=== PATIENT | female | born 1945 | race Caucasian/White ===

== ENCOUNTER 2019-04-06 20:35 | Emergency (ER) | payer MEDICARE, SELFPAY ==
[2019-04-06 20:39] VITALS: BP 105/67; PULSE 56; RESP 16; TEMP 36.6; O2SAT 100
[2019-04-06 20:46] VITALS: RESP 16
--- NOTE | 2019-04-06 20:48 | W.ED.GENAD ---
Discharge Plan Disposition Patient Disposition: HOME Condition: Stable Discharge Details Chief Complaint: Dizzy/Sync Clinical Impression: Closed fracture of distal end of right fibula Primary Care Provider: Darleen Bowens ED Provider: Manjeet Moreno Home Meds and New Rx's Prescriptions: No Action vitamin B complex [B-Complex] 1 EACH tablet 1 ea PO DAILY RF: 0 cholecalciferol (vit D3)(bulk) 1 ML liquid 1 drp Miscellaneous DAILY RF: 0 areds(eye vitamins) RF: 0 Discharge Instructions Instructions: Leg Fracture (ED) Additional Instructions: if pain continues in a week see your primary care provider take tylenol and ibuprofen as needed for pain, follow dosing instructions on packaging Medical Decision Making 73 yo female comes in with cc of right ankle pain after she twisted it while walking yesterday. Denies hitting head or n/v and has no headache or neck pain. She states this morning she got out of bed and had loc. she states she has had this in the past when going from laying to standing and came in tonight for the ankle pain not this episode of passing out and denies any chest pain, sob, abd pain or headache with this. The episode does sound likely orthoasis and given lack of symptoms, normal ecg and hx of similar do not feel workup indicated at this time. Will xray the right ankle. She has mild pain over the lateral malleolus, does have full rom though with pain, intact sensation and pulses . xray per vrad shows posible nondisplaced distal fibula fracture. Given this is where her pain is will place in walking boot and have her f/u with orthopedics, she states she has seen Dr. lakhani in the past . Differential Diagnosis sprain, strain, orthostasis Imaging Data Radiologic Study: Attestation: I personally reviewed and interpreted this imaging study as follows: Imaging: X-Ray Radiologist's impression: IMPRESSION: 1. Diminished intrahepatic biliary duct dilatation since the prior study dated 08/21/2018. Persistent pneumobilia, common bile duct, and pancreatic duct dilatation without interval change. 2. Resolution of previously identified significant right hydronephrosis with multiple right nonobstructing intrarenal calculi predominantly in the lower pole. 3. Mild gaseous distention of the sigmoid colon with a moderate amount of fecal material in the colon. ECG Data Attestation: I personally reviewed and interpreted this ECG (s) as follows: Prior ECG tracings: not available for review Interpretation: sinus rhythm, rate of 60, pr 158, no acute st t wave ischemic findings HPI General Mode of arrival: ambulatory. Date/Time Provider Initiated Documentation: 04/06/19 20:36. Limitations to Documentation: no limitations. Information obtained by: patient. History of Present Illness 73 year old F presents to the emergency department with the chief complaint of right ankle pain, described as moderate, Quality is described as aching, Patient reports no radiation. Patient started experiencing this day(s) (1) and it has been constant. Movement improves symptom(s), Rest worsens symptoms . Patient did receive the following treatments prior to arrival, none Related Data Home Medications Medication Instructions Recorded Confirmed cholecalciferol (vit D3)(bulk) 1 drp MISCELLANEOUS DAILY 11/28/16 04/06/19 vitamin B complex [B Complex] 1 ea PO DAILY 11/28/16 04/06/19 Areds(Eye Vitamins) 09/11/17 02/25/19 Allergies Allergy/AdvReac Type Severity Reaction Status Date / Time bupropion HCl AdvReac hypersensit Unverified 04/06/19 20:42 [From Wellbutrin] ivity General Stated Complaint: Dizzy/Sync DAVID: 3 Review of Systems Review of Systems All systems reviewed & are unremarkable except as noted in HPI and below Constitutional Denies chills, Denies fever(s) and Denies weakness Cardiovascular Denies chest pain and Denies dyspnea Respiratory Denies cough and Denies dyspnea Gastrointestinal Denies abdominal pain, Denies nausea and Denies vomiting Integumentary/Breasts Denies rash Neurologic Denies weakness [facility] Social History Smoking/Tobacco Use Status: Never Drug use: Never Exam Const General: no acute distress Orientation: alert HENMT Head: normal to inspection Ears: external ears normal General nose exam: external nose normal Mouth: moist mucous membranes Eyes General: appearance normal, both eyes and all related structures Neck Neck: normal visual inspection Resp Effort & Inspection: normal respiratory effort and able to speak in complete sentences Cardio Rate: regular rate Skin General skin exam: no rashes or lesions noted Neuro General: alert and oriented x3 Extrem General: normal to inspection Psych Mental Status: mental status grossly normal Course Vital Signs Temperature 36.6 C 04/06/19 20:39 Pulse 56 L 04/06/19 20:39 Respiratory Rate 16 04/06/19 20:39 Blood Pressure 105/67 04/06/19 20:39 Pulse Oximetry 100 04/06/19 20:39 Temperature 36.6 C 04/06/19 20:39 Temperature Source Skin 04/06/19 20:39 Pulse 56 L 04/06/19 20:39 Respiratory Rate 16 04/06/19 20:46 Respiratory Effort Non-Labored 04/06/19 20:48 Respiratory Depth Normal 04/06/19 20:46 Respiratory Pattern Normal 04/06/19 20:46 Blood Pressure 105/67 04/06/19 20:39 Blood Pressure Position Sitting 04/06/19 20:39 Pulse Oximetry 100 04/06/19 20:39 Oxygen Delivery Method Room Air 04/06/19 20:39 Oxygen Flow Rate 0 04/06/19 20:39
--- NOTE | 2019-04-06 20:53 | ED.GENADUL_ITS ---
Discharge Plan Disposition Patient Disposition: HOME Condition: Stable Discharge Details Chief Complaint: Dizzy/Sync Clinical Impression: Closed fracture of distal end of right fibula Primary Care Provider: Darleen Bowens ED Provider: Manjeet Moreno Home Meds and New Rx's Prescriptions: No Action vitamin B complex [B-Complex] 1 EACH tablet 1 ea PO DAILY RF: 0 cholecalciferol (vit D3)(bulk) 1 ML liquid 1 drp Miscellaneous DAILY RF: 0 areds(eye vitamins) RF: 0 Discharge Instructions Instructions: Leg Fracture (ED) Additional Instructions: if pain continues in a week see your primary care provider take tylenol and ibuprofen as needed for pain, follow dosing instructions on packaging Medical Decision Making 73 yo female comes in with cc of right ankle pain after she twisted it while walking yesterday. Denies hitting head or n/v and has no headache or neck pain. She states this morning she got out of bed and had loc. she states she has had this in the past when going from laying to standing and came in tonight for the ankle pain not this episode of passing out and denies any chest pain, sob, abd pain or headache with this. The episode does sound likely orthoasis and given lack of symptoms, normal ecg and hx of similar do not feel workup indicated at this time. Will xray the right ankle. She has mild pain over the lateral malleolus, does have full rom though with pain, intact sensation and pulses . xray per vrad shows posible nondisplaced distal fibula fracture. Given this is where her pain is will place in walking boot and have her f/u with orthopedics, she states she has seen Dr. lakhani in the past . Differential Diagnosis sprain, strain, orthostasis Imaging Data Radiologic Study: Attestation: I personally reviewed and interpreted this imaging study as follows: Imaging: X-Ray Radiologist's impression: IMPRESSION: 1. Diminished intrahepatic biliary duct dilatation since the prior study dated 08/21/2018. Persistent pneumobilia, common bile duct, and pancreatic duct dilatation without interval change. 2. Resolution of previously identified significant right hydronephrosis with multiple right nonobstructing intrarenal calculi predominantly in the lower pole. 3. Mild gaseous distention of the sigmoid colon with a moderate amount of fecal material in the colon. ECG Data Attestation: I personally reviewed and interpreted this ECG (s) as follows: Prior ECG tracings: not available for review Interpretation: sinus rhythm, rate of 60, pr 158, no acute st t wave ischemic findings HPI General Mode of arrival: ambulatory . Date/Time Provider Initiated Documentation: 04/06/19 20:36 . Limitations to Documentation: no limitations . Information obtained by: patient . History of Present Illness 73 year old F presents to the emergency department with the chief complaint of right ankle pain, described as moderate, Quality is described as aching, Patient reports no radiation. Patient started experiencing this day(s) (1) and it has been constant. Movement improves symptom(s), Rest worsens symptoms . Patient did receive the following treatments prior to arrival, none Related Data Home Medications Medication Instructions Recorded Confirmed cholecalciferol (vit D3)(bulk) 1 drp MISCELLANEOUS DAILY 11/28/16 04/06/19 vitamin B complex [B Complex] 1 ea PO DAILY 11/28/16 04/06/19 Areds(Eye Vitamins) 09/11/17 02/25/19 Allergies Allergy/AdvReac Type Severity Reaction Status Date / Time bupropion HCl AdvReac hypersensit Unverified 04/06/19 20:42 [From Wellbutrin] ivity General Stated Complaint: Dizzy/Sync DAVID: 3 Review of Systems Review of Systems All systems reviewed & are unremarkable except as noted in HPI and below Constitutional Denies chills, Denies fever(s) and Denies weakness Cardiovascular Denies chest pain and Denies dyspnea Respiratory Denies cough and Denies dyspnea Gastrointestinal Denies abdominal pain, Denies nausea and Denies vomiting Integumentary/Breasts Denies rash Neurologic Denies weakness [facility] Social History Smoking/Tobacco Use Status: Never Drug use: Never Exam Const General: no acute distress Orientation: alert HENMT Head: normal to inspection Ears: external ears normal General nose exam: external nose normal Mouth: moist mucous membranes Eyes General: appearance normal, both eyes and all related structures Neck Neck: normal visual inspection Resp Effort & Inspection: normal respiratory effort and able to speak in complete sentences Cardio Rate: regular rate Skin General skin exam: no rashes or lesions noted Neuro General: alert and oriented x3 Extrem General: normal to inspection Psych Mental Status: mental status grossly normal Course Vital Signs Temperature 36.6 C 04/06/19 20:39 Pulse 56 L 04/06/19 20:39 Respiratory Rate 16 04/06/19 20:39 Blood Pressure 105/67 04/06/19 20:39 Pulse Oximetry 100 04/06/19 20:39 Temperature 36.6 C 04/06/19 20:39 Temperature Source Skin 04/06/19 20:39 Pulse 56 L 04/06/19 20:39 Respiratory Rate 16 04/06/19 20:46 Respiratory Effort Non-Labored 04/06/19 20:48 Respiratory Depth Normal 04/06/19 20:46 Respiratory Pattern Normal 04/06/19 20:46 Blood Pressure 105/67 04/06/19 20:39 Blood Pressure Position Sitting 04/06/19 20:39 Pulse Oximetry 100 04/06/19 20:39 Oxygen Delivery Method Room Air 04/06/19 20:39 Oxygen Flow Rate 0 04/06/19 20:39
--- NOTE | 2019-04-06 21:00 | DI.RAD_ITS ---
SYMPTOM/DIAGNOSIS: PAIN S/P FALL RIGHT ANKLE: There is a question of a nondisplaced fracture through the medial malleolus. There is minimal soft tissue swelling. There is mild soft tissue swelling overlying the lateral malleolus. There is also question of a lucency in the lateral malleolus. The ankle mortise is not widened. The talar dome appears intact. IMPRESSION: Question of nondisplaced fractures of both medial and lateral malleoli.
--- NOTE | 2019-04-06 21:21 | DI.VRAD_ITS ---
EXAM: XR Right Ankle EXAM DATE/TIME: 04/06/2019 8:48 PM CLINICAL HISTORY: 73 years old, female; Pain; Ankle and other: S/P fall; Right TECHNIQUE: Imaging protocol: XR Right ankle. Views: 3 or more views. COMPARISON: CR RIGHT ANKLE COMPLETE 04/09/2016 5:27 PM FINDINGS: Bones/joints: Osteopenia. On the mortise view only, there is a thin cortical defect in the medial margin of the lateral malleolus suspicious for an incomplete nondisplaced component of lateral malleolus fracture. No blastic or lytic lesions. No periostitis or osteolysis. The ankle mortise joint is well maintained. Moderate joint effusion distending the anterior recess. No hindfoot coalition. Soft tissues: No gross soft tissue abnormalities. No radiopaque foreign bodies. Other findings: The visualized hindfoot and midfoot are grossly well aligned. IMPRESSION: 1. Suspect nondisplaced fracture involving the medial cortical margin of the lateral malleolus seen on the mortise view only. 2. Moderate ankle joint effusion. 3. No other fractures. 4. Osteopenia. Dictated and Authenticated by: Nemesio Parker MD. Ordering:ISMAEL Burroughs MD
== END 2019-04-06 21:43 | disposition home or self-care (01) ==
LOC: ER 21:12
PROVIDERS: Emergency Provider Emergency Medicine; PCP Nurse Practitioner
DX: S82.831A Other fracture of upper and lower end of right fibula, initial encounter for closed fracture (principal); W18.49XA Other slipping, tripping and stumbling without falling, initial encounter
CPT/HCPCS: 27786; 93005; 99283; 73610; 93010; L4361

== ENCOUNTER → 2019-04-22 14:31 | Outpatient (BNVA) | payer MEDICARE, SELFPAY | PROVIDERS: PCP Nurse Practitioner; Referring Provider Nurse Practitioner; Visit Provider Student in an Organized Health Care Education/Training Program | DX: S93.491A Sprain of other ligament of right ankle, initial encounter (principal); X50.9XXA Other and unspecified overexertion or strenuous movements or postures, initial encounter; M76.61 Achilles tendinitis, right leg | CPT/HCPCS: 99214 ==

== ENCOUNTER 2019-07-10 16:44 | Emergency (ER) | payer MEDICARE, MEDICAID, SELFPAY ==
[2019-07-10] VITALS (45 sets, daily range): BP systolic 81–108; BP diastolic 53–68; PULSE 57–78; RESP 11–25; TEMP 36.6; O2SAT 96–100
--- NOTE | 2019-07-10 17:03 | NUR.NOTE ---
iv placed labs drawn pending iv eval Nursing Note:
--- NOTE | 2019-07-10 17:36 | DI.CT_ITS ---
EXAM: CT THORAX ABD/PEL CTA CLINICAL HISTORY: central chest and abd pain. TECHNIQUE: CT examination of the chest, abdomen and pelvis was carried out according to the usual pr otocol with contrast enhancement with 59 cc of Omnipaque 350. COMPARISON: No exams were available for comparison FINDINGS: There is no evidence of PE. There is no evidence of an aortic aneurysm with no evidence of dissection . Note is made of small regions of bibasilar atelectasis. There is no pneumothorax or pleural effusio n. There is an apparent small pericardial effusion. There is no evidence of lymphadenopathy. Note is made of a T11 compression fracture of unknown age. The soft tissues unremarkable. There is no evidence of an aneurysm involving the abdominal aorta. There is no evidence of dissection . The celiac trunk and mesenteric arteries are intact. Renal arteries are intact. Left iliac arteri es are intact. Liver is unremarkable. Gallbladder is normal. No stones or ductal dilatation is seen. Atrophic espinoza ges involving the pancreas are seen. Spleen is unremarkable. The adrenals are normal. There is a 5 millimeter nodule involving the anterior right kidney. Nodules are identified in the anterior left ki dney and are not clearly cystic. 1.5 centimeter nodule in the superior pole of the left kidney is no t cystic. There is no evidence of bowel obstruction. There is nothing to suggest an acute appendix. The bladder is intact. 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 There is no evidence of free air or free fluid in the intraperitoneal space. No acute bony abnormali ty is seen. The soft tissues unremarkable. There is no evidence of lymphadenopathy. IMPRESSION: No evidence of PE. There is no evidence of a thoracic aortic aneurysm. There is no evidence of dissec tion. No evidence of an aortic aneurysm. No evidence of dissection. 5 millimeter nodule identified. There a re small anterior left kidney nodules. 1.5 centimeter nodule involving the superior portion of the l eft kidney shows increased attenuation approximately 36 Hounsfield units. Correlation with renal ultr asound recommended.
[2019-07-10 17:52] LABS: Abs Immature Grans 0.01 k/cumm (0.0-0.09); Absolute Basophil Count 0.02 k/cumm (0.0-0.2); Absolute Eosinophil Count 0.07 k/cumm (0.0-0.7); Absolute Lymphocyte Count 1.34 k/cumm (1.2-3.4); Absolute Monocyte Count 0.62 k/cumm (0.11-0.7); Basophils % 0.3; Eosinophils % 1.2; HCT 34.4 % (36.0-46.0); HGB 11.4 g/dL (12.0-15.5); Immature Grans % 0.2; Lymphocytes % 22.1; Mean Corp. HGB Concentration 33.1 g/dL (32.0-36.0); Mean Corpuscular Hemoglobin 30.4 pg (27.0-33.0); Mean Corpuscular Volume 91.7 fL (80-95); Mean Platelet Volume 10.5 fL (8.0-11.0); Monocytes % 10.2; Platelet Count 202 x1000/uL (130-400); RBC 3.75 m/cumm (4.00-5.20); RBC Distribution Width 13.3 % (11.7-14.6); White Blood Cell Count 6.06 k/cumm (4.4-10.8)
[2019-07-10 18:05] LABS: ALT 19 U/L (14-59); AST 18 U/L (15-37); Albumin 3.5 g/dL (3.4-5.0); Alkaline Phosphatase 62 U/L (46-116); Anion Gap 9.5 mmol/L (3-11); BUN 17 mg/dL (7-18); Bilirubin, Total 0.8 mg/dL (0.2-1.0); CO2 27.5 mmol/L (21.0-32.0); CREATININE 0.69 mg/dL (0.55-1.02); Calcium 8.3 mg/dL (8.5-10.1); Chloride 104 mmol/L (98-107); Glucose 100 mg/dL (70-100); Potassium 3.9 mmol/L (3.5-5.1); Sodium 141 mmol/L (136-145); Total Protein 6.9 g/dL (6.4-8.2)
[2019-07-10 18:06] LABS: Troponin I < 0.05 ng/mL (0.00-0.06)
--- NOTE | 2019-07-10 18:35 | NUR.NOTE ---
pt to ct Nursing Note:
[2019-07-10] MEDS: Omnipaque 350 MG/ML 100 ML BTL IJ (18:52)
--- NOTE | 2019-07-10 19:45 | DI.VRAD_ITS ---
PROCEDURE INFORMATION: Exam: CT Angiography Chest With Contrast Exam date and time: 07/10/2019 5:38 PM Clinical history: 73 years old, female; Chest pain; Abdominal pain; Patient HX: Central chest and abd pain TECHNIQUE: Imaging protocol: Computed tomographic angiography of the chest with intravenous contrast. 3D rendering: MIP reconstructed images were created and reviewed. Other technique: Contrast is primarily in the aortic arch and pulmonary veins COMPARISON: No relevant prior studies available. FINDINGS: Pulmonary arteries: No evidence of pulmonary embolus in the main pulmonary arteries. Aorta: No aneurysm of the thoracic aorta. No dissection of the aorta. Lungs: Bibasilar atelectasis. Pleural space: Unremarkable. No pneumothorax. No pleural effusion. Heart: Small pericardial effusion Lymph nodes: Unremarkable. No enlarged lymph nodes. Bones/joints: T 11 compression fracture of unknown age Soft tissues: Unremarkable. IMPRESSION: 1. No evidence of pulmonary embolus in the main pulmonary arteries. 2. No aneurysm of the thoracic aorta. 3. No dissection of the aorta. PROCEDURE INFORMATION: Exam: CT Angiography Abdomen and Pelvis With Contrast Exam date and time: 07/10/2019 5:38 PM Clinical history: 73 years old, female; Chest pain; Abdominal pain; Patient HX: Central chest and abd pain TECHNIQUE: Imaging protocol: Computed tomographic angiography of the abdomen and pelvis with intravenous contrast material. 3D rendering: MIP reconstructed images were created and reviewed. COMPARISON: No relevant prior studies available. FINDINGS: VASCULATURE: Aorta: No aneurysm of the abdominal aorta. No dissection of the aorta. Celiac trunk and mesenteric arteries: No occlusion or significant stenosis. Renal arteries: No occlusion or significant stenosis. Right iliac arteries: No occlusion or significant stenosis. Left iliac arteries: No occlusion or significant stenosis. ABDOMEN: Liver: No mass. Gallbladder and bile ducts: Unremarkable. No calcified stones. No ductal dilation. Pancreas: Pancreatic atrophy Spleen: Unremarkable. No splenomegaly. Adrenals: Unremarkable. No mass. Kidneys and ureters: 5 mm nodule anterior right kidney 36 Hounsfield units. Small nodules in the anterior left kidney are not clearly cystic. 1.5 cm nodule in the superior pole of the left kidney is not cystic. Stomach and bowel: Constipation in the right colon Appendix: No evidence of appendicitis. PELVIS: Bladder: Unremarkable. No mass. Reproductive: Surgical absence of the uterus ABDOMEN and PELVIS: Intraperitoneal space: Unremarkable. No free air. No significant fluid collection. Bones/joints: No acute fracture. No dislocation. Soft tissues: Unremarkable. Lymph nodes: Unremarkable. No enlarged lymph nodes. IMPRESSION: 1. No aneurysm of the abdominal aorta. 2. No dissection of the aorta. 3. 5 mm nodule anterior right kidney 36 Hounsfield units. Small nodules in the anterior left kidney are not clearly cystic. 1.5 cm nodule in the superior pole of the left kidney is not cystic. Dictated and Authenticated by: Layla Jones MD. Ordering:LAUREN Lerner MD
--- NOTE | 2019-07-10 19:52 | ED.GENADUL_ITS ---
Discharge Plan Disposition Patient Disposition: HOME Condition: Stable Discharge Details Chief Complaint: GenMedical Clinical Impression: Chest pain, Nodule of kidney Primary Care Provider: Darleen Bowens ED Provider: Kobe Dietrich Home Meds and New Rx's Prescriptions: Continued vitamin B complex [B-Complex] 1 EACH tablet 1 ea PO DAILY RF: 0 cholecalciferol (vit D3)(bulk) 1 ML liquid 1 drp Miscellaneous DAILY RF: 0 areds(eye vitamins) 1 tab PO DAILY RF: 0 omega 1-woq-ajj-fish oil [Fish Oil] 1,000 mg (120 mg-180 mg) Capsule 1 cap PO DAILY RF: 0 Discharge Instructions Additional Instructions: You should have a stress test performed of your heart ideally in the next 72 hours. Please call your doctor. Please be sure to discuss diagnostic CT results with your primary care physician. Additional outpatient diagnostic testing is warranted for renal nodules noted incidentally. Please contact your primary care physician to arrange follow-up. Call to arrange timely follow-up next week. Return to the ER for any worsening or new concerning symptoms. Avoid spicy, fried, fatty foods and eating 2 hours prior to bedtime to minimize potential for gastric reflux. Referrals: Darleen Bowens [Primary Care Provider] - Discharge Data Discharge Date/Time-TO BE ENTERED AT DEPARTURE: 07/10/19 21:40 Medical Decision Making <Yann Gramajo MD - Last Filed: 07/11/19 09:08> 19:00 --73-year-old female here after a few episodes of central chest pain, worse with bending over today, as well as a syncopal episode 2 days ago. Patient is hypotensive but at her baseline upon review of prior clinical notes. She is not tachycardic and saturating well in no respiratory distress. She is experienced no shortness of breath. Think this is unlikely pulmonary embolism. I am however concerned with the potential for aortic dissection. Plan to obtain CTA of the chest. I will include CTA of the abdomen is well to determine if there is distal extension. Patient does seem to have a slightly full abdomen but is nontender. Screening EKG was performed and reviewed and interpreted by me: Sinus rhythm 60 bpm, left axis deviation, less than [address] elevation in V1 that is old compared to prior, [address] elevation in V2 that is new compared to prior. Plan to check troponin. 20:00 --labs reviewed, initial troponin negative. CTA of the chest was interpreted by radiology: No evidence of pulmonary embolism in the main pulmonary arteries. No aneurysm of the thoracic aorta. No dissection of the aorta. CTA of the abdomen interpreted by radiology: No aneurysm of the abdominal aorta. No dissection of the aorta. 5 mm nodule anterior right kidney 36 Hounsfield units. Small nodules in the anterior left kidney are not clearly cystic. 1.5 cm nodule in the superior pole of the left kidney is not cystic. All radiologic results were reviewed with the patient. Plan for delta trop and repeat ecg. <Kobe Dietrich MD - Last Filed: 07/10/19 21:28> Received signout from Dr. Gramajo. Patient remains well requesting discharge to home. Repeat EKG at 8:45 PM shows sinus rhythm, borderline bradycardia with a rate of 58, the QRS is narrow, there is persistent J-point elevation in V2 that is unchanged. No other evidence of ST segment elevation. Repeat troponin was negative. Did again offer the patient admission which she declined. She states she feels improved and wishes to go home. I discussed return precautions with her. Dr. Gramajo has ordered an outpatient stress test. Patient is stable for discharge to home at this time. HPI <Yann Gramajo MD - Last Filed: 07/11/19 09:08> General Mode of arrival: ambulatory . Date/Time Provider Initiated Documentation: 07/10/19 16:59 . Limitations to Documentation: no limitations . Information obtained by: patient . HPI Narrative: 73-year-old female presents with chief complaint of chest discomfort. Patient notes about 3 weeks ago she tripped and fell and thinks she injured her ribs. Shortly after the fall she developed pain in her left ribs. Pain improved over a few days gradually. Few days ago, patient experienced a different pain localized to the center of her chest. Pain was moderate. Pain resolved. She then had a recurrent episode of central chest pain 2 nights ago and had a syncopal episode. Today she again experienced an episode of central chest pain that she localizes to her epigastric extending superiorly to her upper chest. Pain does not radiate to her back. Pain today occurred when she was bending over. Pain resolved when she sat back up. Pain was severe today. Patient denies chest pain at this time. She is had no shortness of breath. No leg pain or swelling. She has no abdominal pain. Related Data Home Medications Medication Instructions Recorded Confirmed cholecalciferol (vit D3)(bulk) 1 drp MISCELLANEOUS DAILY 11/28/16 07/10/19 vitamin B complex [B-Complex] 1 ea PO DAILY 11/28/16 07/10/19 Areds(Eye Vitamins) 1 tab PO DAILY 09/11/17 07/10/19 omega 5-aot-yof-fish oil [Fish Oil] 1 cap PO DAILY 07/10/19 07/10/19 Allergies Allergy/AdvReac Type Severity Reaction Status Date / Time bupropion HCl AdvReac hypersensit Unverified 07/10/19 16:56 [From Wellbutrin] ivity General Stated Complaint: GenMedical DAVID: 2 Review of Systems <Yann Gramajo MD - Last Filed: 07/11/19 09:08> Review of Systems ROS Unobtainable: All systems reviewed & are unremarkable except as noted in HPI and below Constitutional Constitutional: Denies fever(s) Cardiovascular Cardiovascular: Reports as per HPI and Denies dyspnea Respiratory Respiratory: Denies dyspnea PFSH <Yann Gramajo MD - Last Filed: 07/11/19 09:08> Medical History Fracture of right ankle 04/2016 Surgical History (L)Elbow 1987 Tonsillectomy Family History Mother No problems noted. Brother Neoplasm Father Heart disease Sister No problems noted. Other Alzheimer's disease Social History Smoking/Tobacco Use Status: Never Alcohol Intake: never Drug use: Never Substance use type: does not use Do you feel safe at home: Yes Do you feel safe in your relationship?: Yes Exam <Yann Gramajo MD - Last Filed: 07/11/19 09:08> Const General: cooperative and no acute distress HENMT Head: normocephalic Mouth: moist mucous membranes Eyes Conjunctivae: normal conjunctivae Sclera: normal sclerae Neck Neck: trachea midline and supple Resp Auscultation: clear to auscultation bilaterally, no rales, no rhonchi and no wheezes Cardio Jugular venous pressure: no JVD Rate: regular rate and not tachycardic Rhythm: regular rhythm GI Palpation: soft, not firm, no guarding, no masses, not rigid and nontender Skin General skin exam: no rashes or lesions noted Neuro General: alert, awake, oriented x3 and tone normal Extrem General: no edema Psych Appearance: grossly normal Mental Status: mental status grossly normal Course <Yann Gramajo MD - Last Filed: 07/11/19 09:08> Vital Signs Vital signs: Vital Signs Temperature 36.6 C 07/10/19 16:46 Pulse 70 07/10/19 16:46 Respiratory Rate 16 07/10/19 16:46 Blood Pressure 97/59 L 07/10/19 16:46 Pulse Oximetry 99 07/10/19 16:46 Temperature 36.6 C 07/10/19 16:46 Temperature Source Skin 07/10/19 16:46 Pulse 60 07/10/19 19:15 Pulse 61 07/10/19 19:20 Respiratory Rate 13 07/10/19 19:20 Respiratory Effort Non-Labored 07/10/19 18:36 Respiratory Depth Normal 07/10/19 18:36 Respiratory Pattern Normal 07/10/19 18:36 Blood Pressure 99/59 L 07/10/19 19:15 Blood Pressure Mean 69 07/10/19 19:15 Blood Pressure Position Sitting 07/10/19 16:46 Pulse Oximetry 100 07/10/19 19:20 Oxygen Delivery Method Room Air 07/10/19 16:46 Oxygen Flow Rate 0 07/10/19 16:46 Pain Level 4 07/10/19 19:19 Lab/Test Results Lab/Test Results: Laboratory Tests Range/Units 07/10/19 07/10/19 17:44 17:44 WBC (4.4-10.8) k/cumm 6.06 RBC (4.00-5.20) m/cumm 3.75 L Hgb (12.0-15.5) g/dL 11.4 L Hct (36.0-46.0) % 34.4 L MCV (80-95) fL 91.7 MCH (27.0-33.0) pg 30.4 MCHC (32.0-36.0) g/dL 33.1 RDW (11.7-14.6) % 13.3 Plt Count (130-400) x1000/uL 202 MPV (8.0-11.0) fL 10.5 Immature Gran % 0.2 Neutrophils % 66.0 Lymphocytes % 22.1 Monocytes % 10.2 Eosinophils % 1.2 Basophils % 0.3 Absolute Neutrophils (1.2-6.7) k/cumm 4.00 Absolute Lymphocytes (1.2-3.4) k/cumm 1.34 Absolute Monocytes (0.11-0.7) k/cumm 0.62 Absolute Eosinophils (0.0-0.7) k/cumm 0.07 Absolute Basophils (0.0-0.2) k/cumm 0.02 Sodium (136-145) mmol/L 141 Potassium (3.5-5.1) mmol/L 3.9 Chloride (98-107) mmol/L 104 Carbon Dioxide (21.0-32.0) mmol/L 27.5 Anion Gap (3-11) mmol/L 9.5 BUN (7-18) mg/dL 17 Creatinine (0.55-1.02) mg/dL 0.69 Estimated GFR/1.73 m2 (mL/min/1.73m2) >= 60.00 Glucose (70-100) mg/dL 100 Calcium (8.5-10.1) mg/dL 8.3 L Total Bilirubin (0.2-1.0) mg/dL 0.8 AST (15-37) U/L 18 ALT (14-59) U/L 19 Alkaline Phosphatase (46-116) U/L 62 Troponin I (0.00-0.06) ng/mL < 0.05 Total Protein (6.4-8.2) g/dL 6.9 Albumin (3.4-5.0) g/dL 3.5 Sign Out <Yann Gramajo MD - Last Filed: 07/11/19 09:08> Sign Out Data: Sign Out Comment: follow-up delta trop and ecg. If negative and reassessment unchanged, plan for likely discharge with outpatient stress test and follow-up for renal nodules. Last updated by Yann Gramajo MD at 07/10/19 20:20
[2019-07-10 21:21] LABS: Troponin I < 0.05 ng/mL (0.00-0.06)
== END 2019-07-10 21:40 | disposition home or self-care (01) ==
PROVIDERS: Student in an Organized Health Care Education/Training Program; Emergency Provider Emergency Medicine; PCP Nurse Practitioner
DX: R07.9 Chest pain, unspecified (principal); N28.89 Other specified disorders of kidney and ureter
CPT/HCPCS: 36415; 71275; 74177; 80053; 93005; 99285; 84484; 85025; 93010; 99284; J3490

== ENCOUNTER 2019-07-14 00:39 | Outpatient (CLI) | payer MEDICARE, MEDICAID, SELFPAY ==
--- NOTE | 2019-07-14 08:30 | ETT_ITS ---
APPROVED REPORT Exam: Exercise Treadmill Patient Location: Out-Patient Room/Bed: Stress Nurse: Laura Peng RN Rhythm: NSR Indications: Chest Pain, Syncope- pt reported fainting a day refore going to the ER for chest pain, d id not appear to report this on arrival to the ER. Medical History Medical History: Hyperlipidemia, GERD, fainting Medications: none Allergies: Bupropion Cardiac Risk Factors: Hyperlipidemia, FHX of CAD Pretest Chest Pain Characteristics: No chest pain Exercise History: Physically active Physical Disabilities: none Stress Test Details Test: Exercise stress testing was performed using a Niko protocol. Rest Stress HR Resting HR: 61 bpm Max Heart Rate (APMHR): 147 bpm Max HR Achieved: 130 bpm Target HR (85% APMHR): 124 bpm % of APMHR: 88 Recovery HR: 61 bpm HR response to stress: Normal HR response to stress BP Resting BP: 90/72 mmHg Max BP: 132/74 mmHg Recovery BP: 98/62 mmHg BP response to stress: Normal blood pressure response to stress. ECG Resting ECG: Sinus Tachycardia, Sinus Rhythm Stress ECG: Sinus Tachycardia ST Change: Normal Arrhythmia: None Recovery ECG: Sinus Rhythm, normal EKG Recovery ST Change: Normal Recovery ST Deviation: 0 mm Recovery Arrhythmia: None, Clinical Reason for Termination: Maximal effort Stress Symptoms: General Fatigue, Dyspnea Exercise duration: 8.5 min Highest Stage Achieved: Stage 3: 3.4 mph at 14% grade. Exercise capacity: 10.16 METs Overall Exercise Capacity for Age: Excellent Stress ECG Conclusion 1. Excellent exercise tolerance 2. This represents a maximal stress test. 3. There is no evidence of ischemia or ectopy on ECG 4. This is a normal stress test. No prior study available for comparison. Test Summary 1 3 10 1.7 91 4.6 88/68 98 2 3 12 2.5 106 7 118/62 99 3 2.29 14 3.4 130 128/72 98 1 min. recovery 80 132/74 3 min recovery 54 122/64 6 min recovery 61 98/62
== END 2019-07-14 00:59 ==
PROVIDERS: PCP Nurse Practitioner; Visit Provider Student in an Organized Health Care Education/Training Program
DX: R07.9 Chest pain, unspecified (principal); R55 Syncope and collapse; E78.5 Hyperlipidemia, unspecified; K21.9 Gastro-esophageal reflux disease without esophagitis; Z82.49 Family history of ischemic heart disease and other diseases of the circulatory system
CPT/HCPCS: 93016; 93018; 93017

== ENCOUNTER 2019-08-21 01:03 | Outpatient (CLI) | payer MEDICARE, MEDICAID, SELFPAY ==
--- NOTE | 2019-08-21 15:11 | DI.US_ITS ---
EXAM: US RENAL CLINICAL HISTORY: ADRENAL NODULE E27.8, INCIDENTAL FINDINGS OF MULTIPLE RENAL NODULES, US FOV TECHNIQUE: Ultrasound performed using standard protocol. COMPARISON: CHEST WITH CONTRAST from 12/13/2011 CT THORAX ABD/PEL CTA from 07/10/2019 FINDINGS: The right kidney measures 9.5 cm in length. There is normal parenchymal thickness and echogenicity. There is no evidence of hydronephrosis or renal calculi. A 7 mm cyst is seen anteriorly in the mid right kidney. Left kidney measures 9.8 cm in length. The left kidney is less well seen, being parti ally obscured by bowel gas. There are no suspicious abnormalities. There is a declivity at the supe rior pole of the left kidney on CT, which appears to represent an area of scarring. It appears stabl e when compared with an exam from 2011. The prevoid bladder volume measured 135 cc. No bladder mass or wall thickening is seen. There is an elevated postvoid residual of 43 cc. IMPRESSION: 7 millimeter right renal cyst. Left kidney was difficult to visualize due to overlying bowel gas. N o suspicious abnormality is seen.
== END 2019-08-21 01:23 ==
PROVIDERS: PCP Nurse Practitioner; Visit Provider Nurse Practitioner
DX: E27.8 Other specified disorders of adrenal gland (principal); N28.1 Cyst of kidney, acquired
CPT/HCPCS: 76770

== ENCOUNTER 2023-10-22 11:46 | Outpatient (REF) | payer MEDICARE, MEDICAID, SELFPAY ==
[2023-10-22 12:33] LABS: Anion Gap 7.3 mmol/L (3-11); BUN 21 mg/dL (7-18); CO2 27.7 mmol/L (21.0-32.0); CREATININE 0.7 mg/dL (0.55-1.02); Calcium 9.4 mg/dL (8.5-10.1); Chloride 105 mmol/L (98-107); Estimated GFR 88.47 (mL/min/1.73m2); Glucose 84 mg/dL (74-106); Potassium 4.6 mmol/L (3.5-5.1); Sodium 140 mmol/L (136-145)
== END 2023-10-22 11:47 | disposition home or self-care (01) ==
LOC: NCHCN 11:46
PROVIDERS: PCP Nurse Practitioner; Visit Provider Nurse Practitioner Family
DX: Z51.81 Encounter for therapeutic drug level monitoring (principal)
CPT/HCPCS: 80048

== ENCOUNTER 2023-10-25 09:29 | Emergency (ER) | payer MEDICARE, MEDICAID, SELFPAY ==
[2023-10-25] VITALS (51 sets, daily range): BP systolic 67–95; BP diastolic 20–51; PULSE 41–73; RESP 9–20; TEMP 36.1; O2SAT 94–95
--- NOTE | 2023-10-25 09:15 | RT.EKG_ITS ---
APPROVED REPORT Exam: Resting ECG Reason for Exam: syncope Patient Location: E HR:42 bpm ECG Measurements Heart Rate 42 AXIS AZ 176 P 77 QRSd 94 QRS -1 QT 474 T 38 QTc 394 Conclusion Sinus bradycardia...rate< 60
--- NOTE | 2023-10-25 09:45 | DI.CT_ITS ---
Exam(s) CT HEAD WO EXAM: CT HEAD WO CLINICAL HISTORY: syncope, bradycardia, NAVARRO right frontal. TECHNIQUE: Imaging Protocol: Axial computed tomography images with coronal and sagittal reformatted images were created and reviewed COMPARISON: No exams were available for comparison FINDINGS: There are no skull fractures. There is no fluid in the visualized paranasal sinuses. There is no evidence of intracranial hemorrhage, mass effect, or shift of midline structures. There are no extra-axial fluid collections. The ventricles are not enlarged or shifted and there is no blo od within the ventricular system nor within the basal cisterns. No findings in the cerebellar hemispheres. There is abundant bilateral periventricular hypodensity c onsistent with chronic small vessel disease. Most prominent in the frontal lobes. There is symmetrical calcification the basal ganglia. IMPRESSION: There is abundant bilateral periventricular hypodensity consistent with chronic small vessel disease. No evidence of intracranial hemorrhage. If indicated follow-up MRI with diffusion imaging can be p erformed Called to ER physician RADIATION DOSE DELIVERED: 764.54mGy.cm Total DLP DATA REPOSITORY: All CT scans at this facility are submitted to the National Radiology Data Registry (NRDR) Dose Index Registry (DIR) with the [employer] (ACR). RADIATION OPTIMIZATION: All CT scans at this facility use at least one of these dose optimization te chniques: automated exposure control; mA and/or kV adjustment per patient size (includes targeted exa ms where dose is matched to clinical indication); or iterative reconstruction.
[2023-10-25 09:53] LABS: Lactate 0.8 mmol/L (0.6-1.4)
--- NOTE | 2023-10-25 09:53 | NUR.NOTE ---
Pacer pads applied to PT Nursing Note:
[2023-10-25 09:54] LABS: Abs Immature Grans 0.02 10^3/uL (0.0-0.06); Absolute Basophil Count 0.04 10^3/uL (0.0-0.2); Absolute Eosinophil Count 0.07 10^3/uL (0.0-0.7); Absolute Lymphocyte Count 1.24 10^3/uL (1.2-3.4); Absolute Monocyte Count 0.43 10^3/uL (0.1-0.8); Absolute Neutrophil Count 3.17 10^3/uL (1.2-6.7); Basophils % 0.8; Eosinophils % 1.4; HCT 35.4 % (36.0-46.0); HGB 11.6 g/dL (11.2-15.7); Immature Grans % 0.4; Lymphocytes % 24.9; MCH 29.7 pg (27.0-33.0); MCHC 32.8 % (32.0-36.0); MCV 91 fL (80-95); MPV 10.1 fL (8.0-11.0); Monocytes % 8.7; Neutrophils % 63.8; Platelet Count 170 10^3/uL (130-400); RBC 3.91 10^6/uL (3.93-5.22); RDW 13.4 % (11.7-14.6); RDW-SD 44.7 fL; WBC 4.97 10^3/uL (4.4-10.8)
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
[2023-10-25] MEDS: Lactated Ringers 500 ML IV ×2 (09:55→11:15)
--- NOTE | 2023-10-25 09:55 | NUR.NOTE ---
0950 assumed care of PT from rubina Dickens Note:
[2023-10-25] MEDS: Ondansetron 4 MG/2 ML VIAL IVP (10:08)
[2023-10-25 10:18] LABS: ALT 32 U/L (14-59); AST 23 U/L (15-37); Albumin 3.3 g/dL (3.4-5.0); Alkaline Phosphatase 69 U/L (46-116); Anion Gap 10.3 mmol/L (3-11); BUN 29 mg/dL (7-18); Bilirubin, Total 0.7 mg/dL (0.2-1.0); CO2 23.7 mmol/L (21.0-32.0); CREATININE 0.8 mg/dL (0.55-1.02); Calcium 8.3 mg/dL (8.5-10.1); Chloride 107 mmol/L (98-107); Estimated GFR 75.37 (mL/min/1.73m2); Glucose 153 mg/dL (74-106); Magnesium 1.9 mg/dL (1.8-2.4); Potassium 3.9 mmol/L (3.5-5.1); Sodium 141 mmol/L (136-145); TSH (W/Ref FT4) 3.72 uIU/mL (0.36-3.74); Troponin I < 50 ng/L (< or =60)
--- NOTE | 2023-10-25 12:45 | DI.RAD_ITS ---
Exam(s) XR PORTABLE CHEST AP EXAM: XR PORTABLE CHEST AP CLINICAL HISTORY: bradycradia. TECHNIQUE: 2D digital imaging was performed. COMPARISON: Chest x-ray December 2011 FINDINGS: Single AP portable view. Heart size normal. Mediastinum not widened. There are chest pads in place. No infiltrates nor pleural effusions. No pulmonary edema. No pneumo thorax. No obvious fractures. IMPRESSION: No acute pulmonary findings. Chest pads in place DATA REPOSITORY: RADIATION DOSE DELIVERED:
[2023-10-25 13:15] LABS: Troponin I < 50 ng/L (< or =60)
== END 2023-10-25 14:25 | disposition short-term general hospital (02) ==
LOC: ER 13:02
PROVIDERS: Emergency Provider Student in an Organized Health Care Education/Training Program; PCP Nurse Practitioner
DX: R55 Syncope and collapse (principal); R00.1 Bradycardia, unspecified; R11.0 Nausea; R51.9 Headache, unspecified
CPT/HCPCS: 80053; 93005; 96361; 96374; 99285; 70450; 71045; 83605; 83735; 84443; 84484; 85025; 93010; J2405

== ENCOUNTER 2023-11-08 10:32 | Outpatient (CLI) | payer MEDICARE, MEDICAID, SELFPAY | END 2023-11-08 10:33 | disposition home or self-care (01) | PROVIDERS: PCP Nurse Practitioner; Visit Provider Nurse Practitioner Family | DX: R55 Syncope and collapse (principal) | CPT/HCPCS: 93246 ==

== ENCOUNTER → 2023-11-27 01:08 | Outpatient (CLI) | payer MEDICARE, MEDICAID, SELFPAY ==
--- NOTE | 2023-11-27 12:30 | DI.US_ITS ---
APPROVED REPORT EXAM: Comprehensive 2D, Doppler, and color-flow Echocardiogram Indications: Syncope Other Information Study Quality: Good Conclusion Normal left ventricular wall thickness and chamber size. EF is 60%. Wall motion is normal Normal right ventricular size and function Both atria are normal in size Trileaflet aortic valve with mild regurgitation Mildly dilated ascending aorta , 3.67 cm Wall motion Left Ventricle The left ventricle is normal size. The left ventricular systolic function is normal. The left ventric ular ejection fraction is within the normal range. There is normal left ventricular wall thickness. T here is normal LV segmental wall motion. There is no ventricular septal defect visualized. LVEF is 60 %. Right Ventricle The right ventricle is normal size. The right ventricular systolic function is normal. Atria The left atrium size is normal. The right atrium size is normal. The interatrial septum is intact wit h no evidence for an atrial septal defect. Aortic Valve The aortic valve is normal in structure. Aortic valve is trileaflet. There is no aortic valvular sten osis. Mild aortic regurgitation. Mitral Valve The mitral valve is normal in structure. No evidence of mitral valve stenosis. Trace mitral regurgit ation. Tricuspid Valve The tricuspid valve is normal in structure. There is no tricuspid valve stenosis. Mild tricuspid regu rgitation. The RVSP is 22.2mmHg. Pulmonic Valve The pulmonary valve is normal in structure. There is no pulmonic valvular stenosis. Trace to mild pul manda regurgitation. Great Vessels The aortic root is normal in size. The ascending aorta is mildly dilated. Aortic arch is not well vis ualized. IVC is normal in size and collapses >50% with inspiration. Pericardium There is no pericardial effusion. 2D Dimensions IVSD d PLAX 0.81 cm F: 0.6-1.0 Ao Root d 2.96 cm F: 2.7 - 3.3 LVPW d PLAX 0.80 cm F: 0.6 - 1.0 Ao Asc Diam d 3.67 cm F: 2.3 - 3.1 LVID d PLAX 4.11 cm F: 3.8 - 5.2 LVDs 2.67 cm F: 2.2 - 3.5 LV EF Teichholz 64.9 % FS 35.14 % LV EDV (Teich) 74.8 mL LV ESV (Teich) 26.2 mL M-Mode TAPSE 2.29 cm (M/F) >1.7 Auto EF LV EDV A4C 68.4 mL LV EDV A2C 87.4 mL LV EDV BP 76.9 mL LV ESV A4C 28.1 mL LV ESV A2C 33.6 mL LV ESV BP 31.1 mL LVEF(%) A4C 58.9 % LVEF(%) A2C 61.6 % LVEF(%) BP 59.5 % LV SV A4C 40.3 ml LV SV A2C 53.9 ml LV SV BP 45.8 ml LV CO A4C 2.1 L/min LV CO A2C 2.8 L/min LV CO BP 2.4 L/min HR A4C 51.43 BPM HR A2C 52.10 BPM LV EDV Index (BP) LV Strain Long Pk Overal Avg (s) 20.02 LA Volume LA Length A4C 4.1 cm LA Length A2C 4.1 cm LA Area A4C s 10.70 cm2 LA Area A2C s 12.09 cm2 LA Vol A4C A-L 23.60 mL LA Vol A2C A-L 30.47 mL LA Vol Biplane A-L 27.0 mL LA Vol/BSA A4C A-L LA Vol/BSA A2C A-L LA Vol/BSA BP A-L 18.6 mL/m2 LA Vol A4C MOD 21.2 mL LA Vol A2C MOD 28.7 mL LA Vol BP MOD 24.7 mL RA Volume RA Area A4C 14.1 cm2 RA ESV A4C (A-L) 39.2mL RA Vol/BSA A4C A-L RA Length A4C 4.3 cm RA ESV A4C (MOD) 36.8mL LV Diastology MV E' medial 0.082 (>0.07 m/s) MV E Vmax 0.84 (0.4-1.3 m/s) MV E/E' MED 10.19 (<14) MV A Vmax 0.65 (0.4-1.3 m/s) MV E' lateral 0.087 (>0.1 m/s) E/A Ratio 1.3 MV E/E' LAT 9.67 (<14) MV E' Average 0.085 m/s MV E/E'(average) 9.92 Aortic Valve AoV Vmax 1.22 m/s LVOT Vmax 0.97 m/s AoV Peak Grad 25.8 mmHg LVOT Peak Grad 3.7 mmHg AoV Area (Vmax) 2.03 cm2 LVOT VTI 0.210 m AoV VTI 0.298 m LVOT Mean Grad 1.9 mmHg AoV Mean Demetrius. 0.81 m/s LVOT SV 53.51 mL AoV Mean Grad 3.1 mmHg LVOT Diam s 1.80 cm AoV Area (VTI) 1.80 cm2 AV Regurg Peak Gr. 45.55 mmHg Velocity Ratio 0.80 AR Decel Ector 0.9m/sec2 AR DT 3908 msec AR PHT 1133 msec AR Vmax 3.38 m/s Mitral Valve MV DT 202 (160-240 msec) Pulmonary Valve PV Vmax 0.87 (0.5-1.5 m/s) RVOT Vmax 0.57 m/s PV Peak Grad 3.0 mmHg RVOT Peak Gr. 1.3 mmHg PV Mean Demetrius 0.48 m/s RVOT VTI 0.131 m PV Mean Grad 1.1 mmHg RVOT Mean Gr. 0.7 mmHg Tricuspid Valve RA Pressure 3.00 mmHg TR Vmax 2.19 m/s TV S' 0.14 m/s TR Peak Grad 19.1 mmHg RVSP (TR) 22.2 mmHg
== END ==
PROVIDERS: PCP Nurse Practitioner Family; Visit Provider Nurse Practitioner Family
DX: R55 Syncope and collapse (principal)
CPT/HCPCS: 93306

== ENCOUNTER 2023-12-03 09:59 | Outpatient (CLI) | payer MEDICARE, MEDICAID, SELFPAY ==
--- NOTE | 2023-12-03 10:43 | W.CARDEVENT ---
Date of service: 12/03/23 Time of Service: 10:44 Cardiac Event Recorder Referring Provider:: Anthony Barboza Indications:: Syncope Cardiac Event Note: This is a cardiac event monitor ordered for syncope. Patient was monitored for 13 days and 23 hours rhythm throughout was sinus with an average heart rate of 56. Minimum was 39, maximum 124 There were rare atrial premature beats. There were several self-limited atrial runs, the longest of which was 9 beats in duration There were very rare isolated ventricular ectopic beats There was no atrial fibrillation, no high-grade AV block, no pauses greater than 3 seconds Patient symptoms corresponded to sinus rhythm, rate 49, rate 69
== END 2023-12-03 10:00 | disposition home or self-care (01) ==
LOC: CARDOPNVT 09:59
PROVIDERS: PCP Nurse Practitioner Family; Visit Provider Internal Medicine Cardiovascular Disease
DX: R55 Syncope and collapse (principal); I49.1 Atrial premature depolarization
CPT/HCPCS: 93248

== ENCOUNTER 2024-01-17 10:37 | Outpatient (REF) | payer MEDICARE, MEDICAID, SELFPAY ==
[2024-01-17 15:40] LABS: Vitamin D 25 Total 34.9 ng/mL (30-100)
== END 2024-01-17 10:38 | disposition home or self-care (01) ==
LOC: NCHCN 10:37
PROVIDERS: PCP Nurse Practitioner Family; Visit Provider Nurse Practitioner Family
DX: E55.9 Vitamin D deficiency, unspecified (principal)
CPT/HCPCS: 82306

== ENCOUNTER 2024-11-20 15:48 | Observation (INO) | payer MEDICARE, MEDICAID, SELFPAY ==
[2024-11-20] VITALS (48 sets, daily range): BP systolic 74–138; BP diastolic 43–95; PULSE 52–103; RESP 4–22; TEMP 36.4–37.1; O2SAT 87–100
--- NOTE | 2024-11-20 15:45 | DI.RAD_ITS ---
Exam(s) XR SHOULDER LT COMPLETE 2+V XR CHEST 1V IN DI DEPT XR HUMERUS LT EXAM: XR CHEST 1V IN DI DEPT CLINICAL HISTORY: syncope TECHNIQUE: 2D digital imaging was performed. AP semi-erect view of the chest performed in stretcher. Four views of the left shoulder and two views of the left humerus COMPARISON: CR XR PORTABLE CHEST AP from 10/25/2023 CR XR SHOULDER LT COMPLETE 2+V from 11/20/2024 CR XR HUMERUS LT from 11/20/2024 FINDINGS: LUNGS: Suboptimally inflated but clear. Mild chronic fibrotic changes. No pleural abnormality seen. HEART: Normal size. AORTA: Normal diameter. BONES: No visible rib fracture. Comminuted fracture of the left humeral head with main component exte nding transversely through the surgical neck. The greater tuberosity is fractured as a separate fragm ent. Other smaller fragments noted medially. Displacement of the humeral shaft medially and superiorl y. No fractures are present more distally in the humerus. The glenohumeral joint is maintained. The AC joint is not widened. Soft tissues: Unremarkable. IMPRESSION: No acute findings in the chest. Comminuted fracture of the left humeral head. DATA REPOSITORY: RADIATION DOSE DELIVERED:
--- NOTE | 2024-11-20 15:45 | RT.EKG_ITS ---
APPROVED REPORT Exam: Resting ECG Reason for Exam: chest pain Patient Location: E HR:95 bpm ECG Measurements Heart Rate 95 AXIS [place] 180 P 69 QRSd 95 QRS -36 QT 368 T 48 QTc 464 Conclusion Sinus rhythm 95 left axis no stemi
--- NOTE | 2024-11-20 16:11 | NUR.NOTE ---
Nursing Note: Contacted Nemesio @ [facility] and notified that this patient is here after falling on her walk. Nemesio asked for her next of kin Eloina to be notified. Called Judy cell phone number on file and left a message.
[2024-11-20 16:50] LABS: Abs Immature Grans 0.05 10^3/uL (0.0-0.06); Absolute Basophil Count 0.04 10^3/uL (0.0-0.2); Absolute Eosinophil Count 0.21 10^3/uL (0.0-0.7); Absolute Lymphocyte Count 1.45 10^3/uL (1.2-3.4); Absolute Monocyte Count 0.39 10^3/uL (0.1-0.8); Absolute Neutrophil Count 3.79 10^3/uL (1.2-6.7); Basophils % 0.7 %; Eosinophils % 3.5 %; HCT 37.6 % (36.0-46.0); HGB 12.3 g/dL (11.2-15.7); Immature Grans % 0.8 %; Lymphocytes % 24.5 %; MCH 29.7 pg (27.0-33.0); MCHC 32.7 % (32.0-36.0); MCV 91 fL (80-95); MPV 9.9 fL (8.0-11.0); Monocytes % 6.6 %; Neutrophils % 63.9 %; Platelet Count 188 10^3/uL (130-400); RBC 4.14 10^6/uL (3.93-5.22); RDW 13.1 % (11.7-14.6); RDW-SD 43.8 fL; WBC 5.93 10^3/uL (4.4-10.8)
--- NOTE | 2024-11-20 17:14 | DI.CT_ITS ---
Exam(s) CT HEAD CERVICAL SPINE WO EXAM: CT HEAD CERVICAL SPINE WO CLINICAL HISTORY: syncope, fall. TECHNIQUE: Imaging Protocol: Axial computed tomography images with coronal and sagittal reformatted images were created and reviewed COMPARISON: CT CT HEAD WO from 10/25/2023 FINDINGS: Head CT Ventricles and Extra axial spaces: Normal in size and morphology for the patient's age. Hemorrhage: None. Cerebral parenchyma: No evidence of mass or acute infarct. Moderate white matter changes of small ve ssel disease. Midline shift: None. Brainstem/Cerebellum: Normal. Calvarium: Normal. Visualized Paranasal sinuses/Mastoids: Clear. Soft tissues: Unremarkable. Cervical Spine CT BONES: Vertebral body heights are maintained. Alignment is normal. There is no evidence of acute frac ture. Degenerative disc changes and facet degenerative changes are seen . SOFT TISSUES: No paraspinal hematoma. The airway appears intact. No pneumothorax is seen at the lung apices. IMPRESSION: Head CT: No acute abnormality. C-spine CT: Degenerative changes, no acute abnormality. RADIATION DOSE DELIVERED: Total DLP DATA REPOSITORY: All CT scans at this facility are submitted to the National Radiology Data Registry (NRDR) Dose Index Registry (DIR) with the [employer] (ACR). RADIATION OPTIMIZATION: All CT scans at this facility use at least one of these dose optimization te chniques: automated exposure control; mA and/or kV adjustment per patient size (includes targeted exa ms where dose is matched to clinical indication); or iterative reconstruction.
[2024-11-20 17:15] LABS: ALT 45 U/L (14-59); AST 35 U/L (15-37); Albumin 3.6 g/dL (3.4-5.0); Alkaline Phosphatase 98 U/L (46-116); Anion Gap 4.7 mmol/L (3-11); BUN 22 mg/dL (7-18); Bilirubin, Total 0.54 mg/dL (0.2-1.0); CO2 31.3 mmol/L (21.0-32.0); CREATININE 0.8 mg/dL (0.55-1.02); Calcium 8.9 mg/dL (8.5-10.1); Chloride 106 mmol/L (98-107); Glucose 121 mg/dL (74-106); Magnesium 1.9 mg/dL (1.8-2.4); Potassium 4.1 mmol/L (3.5-5.1); Sodium 142 mmol/L (136-145); Total Protein 6.9 g/dL (6.4-8.2); Troponin I 4 ng/L (<or=51)
[2024-11-20] MEDS: ACETAMINOPHEN 1,000 MG/100 ML BAG 400 MG IVPB (17:48)
[2024-11-20 18:20] LABS: Troponin I 5 ng/L (<or=51)
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
--- NOTE | 2024-11-20 18:54 | NUR.NOTE ---
lab work delayed d/t inability to achieve appropriate venous access. lab called to draw 1st and 2nd troponins and baseline lab work. Ultrasound guided IV placed by Roberth Coelho RN prior to admission to [facility]. :
[2024-11-20] MEDS: Lactated Ringers 1,000 ML 1000 ML IV (19:23)
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
[2024-11-20] MEDS: Lactated Ringers 1,000 ML 75 ML IV (21:26)
[2024-11-20] MEDS: Normal Saline Flush 10 ML SYR IVP (21:26)
[2024-11-20] MEDS: Enoxaparin 40 MG/0.4 ML SYR SC (21:27)
--- NOTE | 2024-11-20 22:55 | W.PC.ACHO ---
Registration Status: Primary Language: Preferred Language: ED Information & Data Chief Complaint Chest Pain 11/20/24 18:55 Triage Note slipped and fell outside. + 11/20/24 15:49 LOC per witnesses. does not remember event. assisted up by FD but immediately fell again. bradycardic and hypotensive. c/o pain in left upper arm and shoulder. denies neck/back pain for first responders. Medical / Surgical History (Last Reviewed 11/20/24 @ 18:46 by Sarah Griffin MD) Palliative care encounter Fracture of right ankle (Last Reviewed 11/20/24 @ 18:46 by Sarah Griffin MD) Tonsillectomy (L)Elbow Most Recent Vital Signs Temperature 36.8 C 11/20/24 15:49 Temperature Source Oral 11/20/24 15:49 Pulse 58 L 11/20/24 19:51 Pulse 58 L 11/20/24 19:51 Respiratory Rate 17 11/20/24 19:51 Respiratory Effort Short of Breath 11/20/24 17:14 Respiratory Depth Normal 11/20/24 17:14 Respiratory Pattern Normal 11/20/24 17:14 Blood Pressure 105/58 L 11/20/24 19:51 Blood Pressure Mean 73 11/20/24 19:51 Pulse Oximetry 99 11/20/24 19:51 Oxygen Delivery Method Room Air 11/20/24 20:21 Oxygen Flow Rate 0 11/20/24 20:21 Pain Level 0 11/20/24 20:21 Allergies donepezil Adverse Reaction (Severe, Verified 01/02/24 14:02) Cardiac Dysrhythmia Prolonged bradycardia, see ED note Oct 2023. Resolved off med bupropion HCl (From Wellbutrin) Adverse Reaction (Unverified 10/25/23 09:57) hypersensitivity Precautions Isolation Standard precaution 11/20/24 17:14 Active Medications Generic Name Dose Route Start Last Admin Trade Name Freq PRN Reason Stop Dose Admin Enoxaparin Sodium 40 mg 11/20/24 20:39 11/20/24 21:27 Enoxaparin 40 Mg/0.4 Ml Syr SC 40 mg HS CHATO Administration Ringer's Solution 1,000 mls @ 75 mls/hr 11/20/24 20:39 11/20/24 21:26 IV 75 mls/hr INFUSION CHATO Administration Sodium Chloride 0 ml 11/20/24 20:00 11/20/24 21:26 Normal Saline Flush 10 Ml Syr IVP 10 ml BID CHATO Administration IV IV Catheter Type [Right Peripheral IV Forearm] IV Catheter Type [Left Hand] Peripheral IV IV Catheter Gauge [Right 20 Forearm] Diet Orders Category Date Time Status Regular/Normal [DIET] Nutrition 11/21/24 Breakfast Ordered Diagnostics 11/20/24 11/20/24 11/20/24 Range/Units 18:57 17:55 16:45 WBC 5.93 (4.4-10.8) 10^3/uL RBC 4.14 (3.93-5.22) 10^6/uL Hgb 12.3 (11.2-15.7) g/dL Hct 37.6 (36.0-46.0) % MCV 91 (80-95) fL MCH 29.7 (27.0-33.0) pg MCHC 32.7 (32.0-36.0) % RDW 13.1 (11.7-14.6) % Plt Count 188 (130-400) 10^3/uL MPV 9.9 (8.0-11.0) fL Immature Gran % 0.8 % Neutrophils % 63.9 % Lymphocytes % 24.5 % Monocytes % 6.6 % Eosinophils % 3.5 % Basophils % 0.7 % Nucleated RBC % 0.0 (0.0-0.3) % Absolute Neutrophils 3.79 (1.2-6.7) 10^3/uL Absolute Lymphocytes 1.45 (1.2-3.4) 10^3/uL Absolute Monocytes 0.39 (0.1-0.8) 10^3/uL Absolute Eosinophils 0.21 (0.0-0.7) 10^3/uL Absolute Basophils 0.04 (0.0-0.2) 10^3/uL Sodium 142 (136-145) mmol/L Potassium 4.1 (3.5-5.1) mmol/L Chloride 106 (98-107) mmol/L Carbon Dioxide 31.3 (21.0-32.0) mmol/L Anion Gap 4.7 (3-11) mmol/L BUN 22 H (7-18) mg/dL Creatinine 0.8 (0.55-1.02) mg/dL Est GFR (CKD-EPI 2020) 74.90 (mL/min/1.73m2) Glucose 121 H (74-106) mg/dL Calcium 8.9 (8.5-10.1) mg/dL Magnesium 1.9 (1.8-2.4) mg/dL Total Bilirubin 0.54 (0.2-1.0) mg/dL AST 35 (15-37) U/L ALT 45 (14-59) U/L Alkaline Phosphatase 98 (46-116) U/L Troponin I Cancelled 5 4 (<or=51) ng/L Total Protein 6.9 (6.4-8.2) g/dL Albumin 3.6 (3.4-5.0) g/dL TSH 6.50 H (0.36-3.74) uIU/mL Free T4 1.00 (0.76-1.46) ng/dL Intake and Output - 24 Hour Total 11/20/24 15:44 thru 11/20/24 20:21 Weight 60.781 kg Falls Risk Assessment History of Falls Previous History 11/20/24 17:14 Contributing Factors Unstable,Impairments 11/20/24 17:14 Ambulatory Aids Independent 11/20/24 17:14 Tubes/Lines None 11/20/24 17:14 Gait Evaluation No gait disturbance 11/20/24 17:14 Fall Total Score 21 11/20/24 17:14 Level of Risk Standard/Low Risk 11/20/24 17:14 Problems (Last Reviewed 11/20/24 @ 18:46 by Sarah Griffin MD) Closed left humeral fracture (Acute) Bradycardia (Acute) Syncope (Chronic) Fall (Acute) Bradycardia (Acute) Humerus head fracture (Acute) Short-term memory loss (Acute) Hypercholesterolemia (Acute 11/13/16) Notes 11/20/24 18:54 Nursing Notes by Sneha Fontaine lab work delayed d/t inability to achieve appropriate venous access. lab called to draw 1st and 2nd troponins and baseline lab work. Ultrasound guided IV placed by Roberth Coelho RN prior to admission to [facility]. : Initialized on 11/20/24 18:54 - END OF NOTE 11/20/24 16:11 Nursing Notes by Dilcia Coelho Nursing Note: Contacted Nemesio @ [facility] and notified that this patient is here after falling on her walk. Nemesio asked for her next of kin Eloina to be notified. Called Elsas cell phone number on file and left a message. Initialized on 11/20/24 16:11 - END OF NOTE v v v v v v v v v Sending and/or Receiving Nurses: Please use comment section below to note any information pertinent to the patient hand-off not included above. Information / Comments: Report received from:Randi RN from ED at 1955. Pt from [facility] [place], Fell, hit head, CT negitive. Echo 11/21, need UA. Low BP, bolus of fluids running.
[2024-11-21] VITALS (8 sets, daily range): BP systolic 91–114; BP diastolic 53–66; PULSE 52–64; RESP 16–18; TEMP 36.2–37.9; O2SAT 96–100
[2024-11-21 01:13] LABS: Bilirubin Negative (Negative); Blood Negative (Negative); Clarity Clear (Clear); Glucose Negative (Negative); Ketones 15 mg/dL (Negative); Leukocyte Esterase Negative (Negative); Nitrite Negative (Negative); Specific Gravity >= 1.030 (1.005-1.025); Urobilinogen 0.2 mg/dL (Up to 0.2); pH 6.5 (5-8)
[2024-11-21] MEDS: Cholecalciferol (Vitamin D3) 1,000 UNIT TAB 2000 UNITS PO (08:24)
[2024-11-21] MEDS: Famotidine 20 MG TAB 10 MG PO (08:25)
[2024-11-21] MEDS: Vitamins B Comp w/C TAB 1 TAB PO (08:25)
[2024-11-21] MEDS: Omega-3 Fatty Acids 1000 MG CAP PO (08:25)
[2024-11-21] MEDS: Normal Saline Flush 10 ML SYR IVP ×2 (08:27→19:30)
[2024-11-21] MEDS: HYDROcodone 5/Acetaminophen 325 TAB PO ×2 (08:31→14:56)
--- NOTE | 2024-11-21 10:53 | PHA.REVIEW2 ---
Pharmacy Admission Review Admission Clinical Review Admission Pharmacy Review: Closed left humeral fracture (Acute) Bradycardia (Acute) Fall (Acute) Bradycardia (Acute) Humerus head fracture (Acute) Short-term memory loss (Acute) Hypercholesterolemia (Acute 11/13/16) donepezil Adverse Reaction (Severe, Verified 01/02/24 14:02) Cardiac Dysrhythmia bupropion HCl (From Wellbutrin) Adverse Reaction (Unverified 10/25/23 09:57) hypersensitivity Resuscitation Status DNI Height 5 ft 2 in Weight 60.781 kg Pharmacy Admission Review Renal Dosing Renal Dosing: BUN 22 mg/dL (7-18) H 11/20/24 16:45 Creatinine 0.8 mg/dL (0.55-1.02) 11/20/24 16:45 Medications needing adjustments: Intervened (CrCl 39.16 mL/min) List of meds needing interventions: changed famotidine dose from 20mg daily to 10mg daily Anticoagulation Anticoagulation: Hgb 12.3 g/dL (11.2-15.7) 11/20/24 16:45 Hct 37.6 % (36.0-46.0) 11/20/24 16:45 Plt Count 188 10^3/uL (130-400) 11/20/24 16:45 Creatinine 0.8 mg/dL (0.55-1.02) 11/20/24 16:45 DVT Prophylaxis: Reviewed Medications: Enoxaparin (40mg daily) Opiate Usage Evaluate Pain Scale/Pains Meds: Reviewed (hydrocodone/APAP 5/325mg - 1 tab/24hrs, morphine IVP q4h PRN - no doses given so far) Scheduled Bowel Reg ordered if on Opiates?: No (PRN docusate/Miralax) Relevant Labs Relevant Labs: Sodium 142 mmol/L (136-145) 11/20/24 16:45 Potassium 4.1 mmol/L (3.5-5.1) 11/20/24 16:45 Chloride 106 mmol/L (98-107) 11/20/24 16:45 Magnesium 1.9 mg/dL (1.8-2.4) 11/20/24 16:45 Electrolytes, C-Reactive P, ESR: Reviewed (No new labs for today) Cardiac Review Cardiac Review: Troponin I Cancelled 11/20/24 18:57 Blood Pressure 97/54 0758 Blood Pressure 100/61 0318 BP, HR, EF%: Reviewed (HR 52) QTc Review QTc: Reviewed (464 from 11/20/24) IV to PO Switch IV Medications: Reviewed (morphine) Home Meds Home Med List reviewed: Intervened Relevent Home Meds Not ordered & why?: All home meds orderd Changed levocarnitine to patients own med order, reached out to nurse to see if this could be brought in for patient. Waiting to hear back. Current Meds Current Medication Order Review: Intervened Comments: Added 2nd PRN to morphine order per pharmacy protocol Changed IV ED access order
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
--- NOTE | 2024-11-21 15:27 | W.PM.PROGNOT ---
Date of Service Date of service: 11/21/24 Time of Service: 15:43 Assessment and Plan Assessment and plan (1) Humerus head fracture: Status: Acute Assessment and plan: As per x-ray the patient sustained a fracture of L humeral head Orthopedic Surgery completed with recommendation for nonoperative treatment with cuff and collar or sling versus surgical intervention consisting of reverse total shoulder arthroplasty Continue with sling in place. Pain management initially done with [place]. IV morphine because of the drop in the patient blood pressure which resolved after IV fluid infusion -Now on scheduled APAP and PRN ultram Orthostatic blood pressure negative. Due to soft blood pressure we are encouraging oral hydration. PT consultation completed with recommendation to return to [place] in with home health PT OT for balance and ADLs OT consultation pending (2) Fall: Status: Acute Assessment and plan: Unclear if this was a mechanical fall vs secondary to syncope. Patient is not a reliable historian. Bystander witnessed what sounds like syncopal event. Continue to monitor on telemetry. Will ask PT and OT to evaluate the patient (3) Bradycardia: Status: Acute Assessment and plan: On arrival of EMS in the field the patient was found to be bradycardic in the 30s with SBP in the 60s which improved with atropine. History of bradycardia with Zio patch which revealed heart rate between 50 at baseline and a minimum of 30 at the time the patient was on donezepil which was discontinued. Patient had mentioned in the past that she would be agreeable to pacer treatment of symptomatic bradycardia. Continue telemetry. Patient current home med list does not show any medicine that could cause bradycardia echocardiogram on 11/23/2024 Cardiology as OP. Electrolytes within normal limits. TSH at 6.50 with T4 at 1.0 Patient is a DNI but not a DNR: Implement symptomatic bradycardia ACLS algorithm as needed (4) Syncope: Status: Inactive Assessment and plan: Syncopal episode most likely related to symptomatic bradycardia. Avoid ronald blocking agents, CCB. (5) Short-term memory loss: Status: Acute Assessment and plan: Patient is already seen by palliative Care in the outpatient setting (6) Hypercholesterolemia: Status: Acute Assessment and plan: Patient is not on statin as OP, last lipid panel was done in 2017. (7) On deep vein thrombosis (DVT) prophylaxis: Status: Acute Assessment and plan: On LMWH Discussed with Dr. Lin Subjective Subjective Patient reports: no new complaints, tolerating liquids well, tolerating a regular diet, voiding w/o difficulty and afebrile; denies diarrhea, nausea, vomiting or shortness of breath Exam Narrative Exam Narrative: Constitutional The patient is sitting in chair, hard of hearing, pleasantly confused but knows that she is either November 21 or and either Saturday or Saturday Nonfocal, heart is regular, no murmur, telemetry sinus bradycardia heart rate 55-56, clear lungs, abdomen is nondistended,soft, nontender, no CVA tenderness Arm is in a sling with good CMS T's to left fingers, left lower lip bruise noticed?oral mucous membranes appears somewhat dry Objective Last Vital Signs Temp 36.8 C 11/21/24 15:15 Pulse 52 L 11/21/24 15:15 Resp 18 11/21/24 15:15 BP 103/61 11/21/24 15:15 Pulse Ox 96 11/21/24 15:15 Laboratory Results - last 24 hr 11/20/24 11/20/24 11/20/24 16:45 17:55 18:57 WBC 5.93 RBC 4.14 Hgb 12.3 Hct 37.6 MCV 91 MCH 29.7 MCHC 32.7 RDW 13.1 Plt Count 188 MPV 9.9 Immature Gran % 0.8 Neutrophils % 63.9 Lymphocytes % 24.5 Monocytes % 6.6 Eosinophils % 3.5 Basophils % 0.7 Nucleated RBC % 0.0 Absolute Neutrophils 3.79 Absolute Lymphocytes 1.45 Absolute Monocytes 0.39 Absolute Eosinophils 0.21 Absolute Basophils 0.04 Sodium 142 Potassium 4.1 Chloride 106 Carbon Dioxide 31.3 Anion Gap 4.7 BUN 22 H Creatinine 0.8 Est GFR (CKD-EPI 2020) 74.90 Glucose 121 H Calcium 8.9 Magnesium 1.9 Total Bilirubin 0.54 AST 35 ALT 45 Alkaline Phosphatase 98 Troponin I 4 5 Cancelled Total Protein 6.9 Albumin 3.6 TSH 6.50 H Free T4 1.00 Urine Color Urine Clarity Urine pH Ur Specific [place] Urine Protein Urine Ketones Urine Blood Urine Nitrite Urine Bilirubin Urine Urobilinogen Ur Leukocyte Esterase Urine Glucose 11/21/24 00:50 WBC RBC Hgb Hct MCV MCH MCHC RDW Plt Count MPV Immature Gran % Neutrophils % Lymphocytes % Monocytes % Eosinophils % Basophils % Nucleated RBC % Absolute Neutrophils Absolute Lymphocytes Absolute Monocytes Absolute Eosinophils Absolute Basophils Sodium Potassium Chloride Carbon Dioxide Anion Gap BUN Creatinine Est GFR (CKD-EPI 2020) Glucose Calcium Magnesium Total Bilirubin AST ALT Alkaline Phosphatase Troponin I Total Protein Albumin TSH Free T4 Urine Color Yellow Urine Clarity Clear Urine pH 6.5 Ur Specific [place] >= 1.030 H Urine Protein Negative Urine Ketones 15 H Urine Blood Negative Urine Nitrite Negative Urine Bilirubin Negative Urine Urobilinogen 0.2 Ur Leukocyte Esterase Negative Urine Glucose Negative Time Spent with Patient Time Spent with Patient: >50 minutes Time was spent: preparing to see the patient(eg.review tests), obtaining and/or reviewing separately otained hiistory, ordering medications,tests, procedures, referring, communicating with other health healthcare translator, indepentently interpreting results, counseling the patient and care coordination
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
[2024-11-21] MEDS: Enoxaparin 40 MG/0.4 ML SYR SC (19:29)
[2024-11-21] MEDS: Acetaminophen 500 MG TAB 1000 MG PO (19:29)
[2024-11-22 03:54] VITALS: BP 110/65; PULSE 58; RESP 17; TEMP 36.4; O2SAT 93
[2024-11-22] MEDS: traMADol 50 MG TAB PO ×2 (04:03→12:55)
[2024-11-22 06:32] LABS: Abs Immature Grans 0.04 10^3/uL (0.0-0.06); Absolute Basophil Count 0.02 10^3/uL (0.0-0.2); Absolute Eosinophil Count 0.04 10^3/uL (0.0-0.7); Absolute Lymphocyte Count 0.94 10^3/uL (1.2-3.4); Absolute Neutrophil Count 5.05 10^3/uL (1.2-6.7); Basophils % 0.3 %; Eosinophils % 0.6 %; HCT 29.6 % (36.0-46.0); Immature Grans % 0.6 %; Lymphocytes % 13.8 %; MCH 30.1 pg (27.0-33.0); MCHC 34.1 % (32.0-36.0); MCV 88 fL (80-95); MPV 10.7 fL (8.0-11.0); Monocytes % 10.3 %; Neutrophils % 74.4 %; Platelet Count 153 10^3/uL (130-400); RBC 3.35 10^6/uL (3.93-5.22); RDW 13.3 % (11.7-14.6); RDW-SD 43.3 fL; WBC 6.79 10^3/uL (4.4-10.8)
[2024-11-22 06:36] LABS: HGB 10.1 g/dL (11.2-15.7)
[2024-11-22 06:51] LABS: Anion Gap 6.9 mmol/L (3-11); BUN 17 mg/dL (7-18); CO2 27.1 mmol/L (21.0-32.0); CREATININE 0.7 mg/dL (0.55-1.02); Calcium 8.4 mg/dL (8.5-10.1); Chloride 107 mmol/L (98-107); Estimated GFR 87.92 (mL/min/1.73m2); Glucose 119 mg/dL (74-106); Magnesium 1.8 mg/dL (1.8-2.4); Potassium 3.8 mmol/L (3.5-5.1); Sodium 141 mmol/L (136-145)
[2024-11-22 07:28] VITALS: BP 111/70; PULSE 62; RESP 18; TEMP 36.7; O2SAT 95
[2024-11-22] MEDS: Acetaminophen 500 MG TAB 1000 MG PO (07:54)
[2024-11-22] MEDS: Vitamins B Comp w/C TAB 1 TAB PO (07:55)
[2024-11-22] MEDS: Famotidine 20 MG TAB 10 MG PO (07:55)
[2024-11-22] MEDS: Cholecalciferol (Vitamin D3) 1,000 UNIT TAB 2000 UNITS PO (07:56)
[2024-11-22] MEDS: Omega-3 Fatty Acids 1000 MG CAP PO (07:57)
[2024-11-22] MEDS: Docusate Sodium 100 MG CAP PO (07:57)
[2024-11-22] MEDS: Normal Saline Flush 10 ML SYR IVP (07:58)
--- NOTE | 2024-11-22 08:04 | PTTR_ITS ---
PT Notes Visit Reasons: Syncope, Prox humerus fracture Inpatient Physical Therapy Treatment Note [facility] Date: 11/22/24 PRECAUTIONS:sling to LUE, fall SUBJECTIVE: Savi states that she is doing well this morning. She is agreeable to PT. OBJECTIVE: ? PAIN: well managed throughout session Therapeutic Activities (22060x8): Direct one-on-one instruction in dynamic activities to improve functional performance. ? BED MOBILITY/TRANSFERS? Rolling L/R: Able to partial roll onto right slide with sling in place to left shoulder Supine-sit: min A to trunk and RUE, with need for continued reminders of task. Utilize single step cues to maximize participation. ? Sit-supine: supervision. Pillow placed on left side for UE support in supine position, and patient able to lie supine comfortably with pillow and sling to support LUE. ? Sit-stand: supervision? Stand-sit: supervision ? Bed-Chair: CGA ? Chair-bed: CGA Provided skilled cues and instruction on performance and technique th roughout.? GAIT? Assistive Device: EMERGENCY VETERINARY TECHNICIAN? Weight bearing: full Assist: EMERGENCY VETERINARY TECHNICIAN ? Distance:? 6'x2 ? Instructed in hand opening/closing on the left for edema management. Requires max verbal and visual cues. Able to complete without discomfort, but with need for continuous cues and reminders. ASSESSMENT:? Able to complete transfers in/out of bed with minimal physical assistance, but with need for significant cues and encouragement. PLAN: Continue PT intervention for transfer training. Appropriate for return to [facility] once medically appropriate. TREATMENT CODE/TIME: 7855-0023 DISCHARGE RECOMMENDATION: [facility]
--- NOTE | 2024-11-22 09:53 | PTTR_ITS ---
PT Notes Visit Reasons: Syncope, Prox humerus fracture Inpatient Physical Therapy Treatment Note [facility] Date: 11/22/24 PRECAUTIONS:sling to LUE, fall SUBJECTIVE: Savi is with nursing when approached by PT for second session. Agreeable to working on bed mobility. OBJECTIVE: ? PAIN: well managed throughout session Therapeutic Activities (77387h5): Direct one-on-one instruction in dynamic activities to improve functional performance. ? BED MOBILITY/TRANSFERS? Supine-sit: performs partial transfer, requiring max cues and redirection throughout. Expresses fatigue throughout, and requests time to think about the transfer, at which point she drifts to sleep. Easily roused, but requests time to rest. ? Sit-supine: Performs with supervision only. Pillow placed on left side for UE support in supine position, and patient able to lie supine comfortably with pillow and sling to support LUE. ? Sit-stand: supervision? Stand-sit: supervision ? Bed-Chair: SBA with cane in RUE ? Chair-bed: SBA with cane in RUE Provided skilled cues and instruction on performance and technique throughout.? GAIT? Assistive Device: HAND LAMINATOR? Weight bearing: full Assist: HAND LAMINATOR ? Distance:? 6'x1? ASSESSMENT:? Able to complete transfers into bed without physical assistance. Requires cues and min A as of this morning to transfer out of bed, but unable to complete later this am due to levels of fatigue. PLAN: Continue PT intervention for transfer training. Appropriate for return to [facility] once medically appropriate. TREATMENT CODE/TIME: 5006-9222 DISCHARGE RECOMMENDATION: [facility]
[2024-11-22 11:41] VITALS: BP 113/68; PULSE 63; RESP 18; TEMP 36.7; O2SAT 98
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
--- NOTE | 2024-11-22 12:29 | PDOC.HHF2F ---
Home Health Referral Home Health Orders Clinical synopsis of why skilled professionals are needed: syncope and weakness Medical diagnosis necessitation home health referral: as above Physical Therapist: Check all that apply Increase strength & endurance for safe mobility at home: Ordered To design/establish home maintenance program: Ordered Fall reduction therapy program for patient with history of frequent falls: Ordered Home safety evaluation and teaching/gait training including stair management (if applicable): Ordered Better Breathing Program: Ordered Occupational Therapist: Evaluate and treat for patient unable to perform ADL/IADL/self-care: Ordered Upper extremity strengthening, range and motion: Ordered Home Bound Status Assistance of another person (Describe assistance and medical necessity): recent falls 2/2 syncope Describe why leaving home would require a considerable and taxing effort: Side effects from pain medication (sedation/drowsiness), Requires frequent rest periods and Confusion Encounter Date and Reason: I certify that a FTF encounter for this patient was performed on November 22, 2024 and that such encounter was related to the primary reason the patient requires home health services. The encounter was conducted in the following manner: By me as the certifying physician, COMMUNITY CULTURAL DEVELOPMENT OFFICER, PA or By an inpatient physician, COMMUNITY CULTURAL DEVELOPMENT OFFICER or PA during an inpatient stay who communicated findings to me, Certification And Authentication I certify that I composed the above information based on my clinical judgment relating to this patient's medical condition and, if applicable, clinical findings communicated to me by the NPP or inpatient physician who performed the FTF encounter. Name of Provider that will be monitoring home health services: Nedra Quiles
--- NOTE | 2024-11-22 13:22 | PDOC.CMDIS ---
Date of service: 11/22/24 Time of Service: 13:22 LACE Index Scoring Tool Questions: Length of Stay (in days): 1 Was the patient admitted via the E.D.?: Yes Comorbidities: Any Tumor E.D. Visits: 1 Answers: Total Score: 7 Risk of Readmission: Low Risk Care Management Discharge Plan Reason for Hospitalization: syncope, s/p fall Discharge Plan: Savi is discharged home today with new orders for HH PT/OT. She will f/u with the provider at the [facility] and continue per her plan of care. Savi's med list was faxed to [facility] per their request by CM. Savi will transport with her daughter. Patient/Family Education Needs: Review of discharge instructions, activity, limitations, and discuss ask me 3. Services Needed at Discharge: Home Health Care Services (PT/OT new) [facility] Health Related Social Needs: No Data to Display
== END 2024-11-22 14:26 | disposition home health service (06) ==
LOC: ER 19:33 → MS 11-21 11:26
PROVIDERS: Nurse Practitioner Acute Care; Student in an Organized Health Care Education/Training Program; Admitting Provider Hospitalist; Emergency Provider Emergency Medicine; PCP Nurse Practitioner Family; Responsible Provider Hospitalist; Visit Provider Hospitalist
DX: S42.212A Unspecified displaced fracture of surgical neck of left humerus, initial encounter for closed fracture; S42.252A Displaced fracture of greater tuberosity of left humerus, initial encounter for closed fracture; R41.3 Other amnesia; R55 Syncope and collapse; E78.00 Pure hypercholesterolemia, unspecified; Z79.899 Other long term (current) drug therapy; W18.39XA Other fall on same level, initial encounter; F03.90 Unspecified dementia, unspecified severity, without behavioral disturbance, psychotic disturbance, mood disturbance, and anxiety; S00.531A Contusion of lip, initial encounter; R00.1 Bradycardia, unspecified; H90.3 Sensorineural hearing loss, bilateral; E83.51 Hypocalcemia; D64.9 Anemia, unspecified; I35.1 Nonrheumatic aortic (valve) insufficiency; I77.810 Thoracic aortic ectasia
CPT/HCPCS: 00123; 36415; 80048; 80053; 93005; 96365; 96366; 96372; 97116; 97161; 97530; 99222; 99285; J1650; 70450; 71045; 72125; 73030; 73060; 81003; 83735; 84439; 84443; 84484; 85025; 93010; 99223; 99233; 99239; G0378; J0131

== ENCOUNTER 2024-12-17 11:56 | Outpatient (CLI) | payer MEDICARE, MEDICAID, SELFPAY ==
--- NOTE | 2024-12-17 09:30 | DI.RAD_ITS ---
Exam(s) XR SHOULDER LT COMPLETE 2+V EXAM: XR SHOULDER LT COMPLETE 2+V CLINICAL HISTORY: F/U L PROX HUM FX. TECHNIQUE: 2D digital imaging was performed of the left shoulder. Two images were obtained. Grashe y and Y views were obtained. COMPARISON: CR XR SHOULDER LT COMPLETE 2+V from 11/20/2024 CR XR HUMERUS LT from 11/20/2024 FINDINGS: BONES: There is again seen a comminuted fracture of the proximal humerus involving the surgical neck. There also appears to be involvement of the greater tuberosity. There are displaced fracture fragm ents seen medially. Compared to the x-ray of the humerus from 11/20/2024, there is not significant ch evelyn in alignment of the fracture. No bony destructive lesion is seen. JOINTS: No dislocation present. There are degenerative changes seen at the acromioclavicular joint. SOFT TISSUE: Normal. IMPRESSION: Stable alignment of the fracture involving the proximal left humerus. DATA REPOSITORY: RADIATION DOSE DELIVERED:
== END 2024-12-17 11:57 | disposition home or self-care (01) ==
LOC: DIORS 11:56
PROVIDERS: PCP Nurse Practitioner Family; Visit Provider Physician Assistant
DX: S42.252A Displaced fracture of greater tuberosity of left humerus, initial encounter for closed fracture; W18.39XA Other fall on same level, initial encounter
CPT/HCPCS: 99213; 73030

== ENCOUNTER 2025-01-13 15:35 | Outpatient (CLI) | payer MEDICARE, MEDICAID, SELFPAY ==
--- NOTE | 2025-01-13 11:00 | DI.RAD_ITS ---
Exam(s) XR SHOULDER LT COMPLETE 2+V EXAM: XR SHOULDER LT COMPLETE 2+V CLINICAL HISTORY: F/U FRACTURE. TECHNIQUE: 2D digital imaging was performed of the left shoulder. Two images were obtained. Y and Grashey views were obtained. COMPARISON: CR XR SHOULDER LT COMPLETE 2+V from 12/17/2024 FINDINGS: BONES: There is a stable alignment of the proximal left humeral fracture. No new fracture is identif ied. The bones appear osteopenic. JOINTS: No dislocation present. SOFT TISSUE: Normal. IMPRESSION: Stable alignment of the proximal left humeral fracture. DATA REPOSITORY: RADIATION DOSE DELIVERED:
== END 2025-01-13 15:36 | disposition home or self-care (01) ==
LOC: DIORS 15:36
PROVIDERS: PCP Nurse Practitioner Family; Referring Provider Nurse Practitioner Family; Visit Provider Student in an Organized Health Care Education/Training Program
DX: S42.302D Unspecified fracture of shaft of humerus, left arm, subsequent encounter for fracture with routine healing (principal); X58.XXXD Exposure to other specified factors, subsequent encounter
CPT/HCPCS: 99213; 73030